=== PATIENT | female | born 1990 | race Hispanic/Latino ===

== ENCOUNTER 2018-04-01 10:41 | Emergency (ER) | payer SELFPAY ==
[2018-04-01 11:01] VITALS: BP 124/59
--- NOTE | 2018-04-01 11:36 | Emergency Department Report ---
Chief Complaint: Chest Pain Stated Complaint: CHEST PAIN/RIGHT SIDE Time Seen by Provider: 04/01/18 11:30 - HPI History of Present Illness: 27-year-old female presents to the emergency department with a complaint of a one-week history of some intermittent right-sided chest pain. She also has some occasional shortness of breath. 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 She denies any fever, back pain. No recent travel, recent surgery, recent immobility or sick contacts at home. She is not a smoker and denies any illicit drug use or abuse. She has not taken anything for her symptoms prior to presentation. - ROS Review of Systems: Positive for right-sided chest pain and intermittent shortness of breath Negative for fever, nausea, vomiting, diaphoresis - Exam Vital Signs: Vital Signs 04/01/18 10:57 Temperature 98.6 F Pulse Rate 67 Respiratory 18 Rate Blood Pressure 124/59 O2 Sat by Pulse 98 Oximetry Physical Exam: Heart sounds are normal to auscultation. Right-sided lung sounds appear normal auscultation. She does not appear in any respiratory or acute distress. [facility] [place] screening note: Focused history and physical exam performed. Due to findings the following was ordered: She will have a CBC, BMP, troponin and d-dimer. We will order a 2 view chest x- ray. EKG has already been done and does not show any signs of ST elevation [place], ischemia or dysrhythmia. ED Disposition for [facility] Condition: Stable
[2018-04-01 12:17] LABS: Basophils % (Auto) 0.5 % (0.0-1.8); Eosinophils # (Auto) 0.1 K/mm3 (0.0-0.4); Eosinophils % (Auto) 1.3 % (0.0-4.3); Hematocrit 38.8 % (30.3-42.9); Lymphocytes # (Auto) 1.3 K/mm3 (1.2-5.4); Lymphocytes % (Auto) 31.9 % (13.4-35.0); Mean Corpuscular HGB Conc 34 % (30-34); Mean Corpuscular Hemoglobin 32 pg (28-32); Mean Corpuscular Volume 96 fl (79-97); Monocytes # (Auto) 0.3 K/mm3 (0.0-0.8); Monocytes % (Auto) 6.5 % (0.0-7.3); Platelet Count 208 K/mm3 (140-440); Red Blood Count 4.06 M/mm3 (3.65-5.03); Red Cell Distribution Width 12.5 % (13.2-15.2)
[2018-04-01 12:53] LABS: BUN/Creatinine Ratio 17; Blood Urea Nitrogen 10 mg/dL (7-17); Calcium 9.1 mg/dL (8.4-10.2); Hemolysis Index 8
--- NOTE | 2018-04-01 14:23 | Emergency Department Report ---
ED Chest Pain HPI - General Chief Complaint: Chest Pain Stated Complaint: CHEST PAIN/RIGHT SIDE Time Seen by Provider: 04/01/18 11:30 Source: patient Mode of arrival: Ambulatory Limitations: No Limitations - History of Present Illness Initial Comments: 27-year-old female presents to the emergency department with a complaint of a one-week history of some intermittent right-sided chest pain. She also has some occasional shortness of breath. 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 She denies any fever, back pain. No recent travel, recent surgery, recent immobility or sick contacts at home. She is not a smoker and denies any illicit drug use or abuse. She has not taken anything for her symptoms prior to presentation. The chest pain is not reproducible to palpation but it does feel better when she is holding pressure against the chest wall. She does not currently have a primary care physician but that she should be getting insurance by the end of the year and will get a primary care physician at that time. - Related Data Allergies Allergy/AdvReac Type Severity Reaction Status Date / Time No Known Allergies Allergy Unverified 03/09/15 12:16 Heart Score - HEART Score History: Slightly suspicious EKG: Normal Age: < 45 Risk factors: No known risk factors Troponin: < normal limit HEART Score: 0 - Critical Actions Critical Actions: 0-3 pts:0.9-1.7%risk of adverse cardiac event.Candidate for discharge ED Review of Systems ROS: Stated complaint: CHEST PAIN/RIGHT SIDE Other details as noted in HPI Comment: All other systems reviewed and negative Constitutional: denies: chills, fever Eyes: denies: eye pain, eye discharge, vision change ENT: denies: ear pain, throat pain Respiratory: shortness of breath (intermittent). denies: cough Cardiovascular: chest pain. denies: palpitations Gastrointestinal: denies: abdominal pain, nausea, diarrhea Genitourinary: denies: urgency, dysuria, discharge Musculoskeletal: denies: back pain, joint swelling, arthralgia Skin: denies: rash, lesions ED Past Medical Hx - Past Medical History Previous Medical History?: Yes Additional medical history: left lung, Legionella and pneumonia - Surgical History Past Surgical History?: Yes Additional Surgical History: Left lung removed - Social History Smoking Status: Never Smoker Substance Use Type: Prescribed ED Physical Exam - General Limitations: No Limitations - Other Other exam information: GENERAL: The patient is well-developed well-nourished. HENT: Normocephalic. Atraumatic. Patient has moist mucous membranes. EYES: Extraocular motions are intact. Pupils equal reactive to light bilaterally. NECK: Supple. Trachea is midline. CHEST/LUNGS: Clear to auscultation to the right side. There are no breath sounds heard on the left side consistent with her previous pneumonectomy. There is no respiratory distress noted. HEART/CARDIOVASCULAR: Regular. There is no tachycardia. There is no murmur. ABDOMEN: Abdomen is soft, nontender. Patient has normal bowel sounds. There is no abdominal distention. SKIN: Skin is warm and dry. NEURO: The patient is awake, alert, and oriented. The patient is cooperative. The patient has no focal neurologic deficits. The patient has normal speech. MUSCULOSKELETAL: There is no tenderness or deformity. There is no limitation range of motion. There is no evidence of acute injury. ED Course Vital Signs 04/01/18 10:57 Temperature 98.6 F Pulse Rate 67 Respiratory 18 Rate Blood Pressure 124/59 O2 Sat by Pulse 98 Oximetry SONIA score - Sonia Score Age > 65: (0) No Aspirin use within the Past 7 Days: (0) No 3 or more CAD Risk Factors: (0) No 2 or more Angina events in past 24 hrs: (0) No Known CAD with more than 50% Stenosis: (0) No Elevated Cardiac Markers: (0) No ST Deviation Greater than 0.5mm: (0) No SONIA Score: 0 ED Medical Decision Making - Lab Data Result diagrams: 04/01/18 11:50 04/01/18 11:50 - EKG Data -: EKG Interpreted by Me EKG shows normal: sinus rhythm, axis (right axis deviation), intervals, QRS complexes, ST-T waves Rate: normal - EKG Data When compared to previous EKG there are: previous EKG unavailable Interpretation: normal EKG - Radiology Data Radiology results: image reviewed interpreted by me: X-ray shows a complete white out on the left side of the thorax with patient has a previous pneumonectomy. The right lung appears inflated without any obvious signs of pneumonia or pleural effusions. - Medical Decision Making Patient presents with a one-week history of some right-sided chest pain. She does not have any shortness of breath at this time but says that it happens intermittently. She also came in to get checked out as she has a previous history of a left pneumonectomy from 9 years ago. EKG does not show any signs of ST elevation [place], ischemia or dysrhythmia. Her labs of an unremarkable including no leukocytosis, no electrolyte abnormalities, negative troponin and a negative d-dimer. Chest x-ray shows no acute process to the right lung field and shows her previous pneumonectomy on the left. Her vital signs were stable throughout ED course including being afebrile and no hypoxia. For all these reasons, the patient appears safe for discharge home at this time. She is low on the Ching score criteria and low on the SONIA score. She was given referrals for primary care and cardiology and encouraged to return to the emergency Department with any worsening of her symptoms or any acute distress. - Differential Diagnosis [place], pneumonia, pneumothorax, PE, costochondritis, GERD Critical Care Time: No Critical care attestation.: If time is entered above; I have spent that time in minutes in the direct care of this critically ill patient, excluding procedure time. ED Disposition Clinical Impression: Intermittent chest pain, Right-sided chest pain Disposition: DC-01 TO HOME OR SELFCARE Is pt being admited?: No Condition: Stable Instructions: Chest Pain (ED) Additional Instructions: Please follow up with a primary care physician in the next few days if possible. I have also given you a referral for a local cold rolling coordinator, Dr. Rios, in case she wanted to follow up regarding your intermittent chest pains. Return to the emergency department immediately with any worsening of your symptoms or any acute distress. Referrals: MORENA GURROLA MD [Primary Care Provider] - 3-5 Days DARLENE RIOS MD [Staff Physician] - 3-5 Days [facility] [Outside] - 3-5 Days Forms: Work/School Release Form(ED) Time of Disposition: 14:23
--- NOTE | 2018-04-01 14:50 | XRay Report ---
ROUTINE CHEST, TWO VIEWS: HISTORY: Right sided chest pain. No recent comparison. There are large areas of atelectasis throughout the left lung with complete atelectasis of the left lower lobe. Partial atelectasis of the left upper lobe is identified. The right lung is hyperaerated. There is mediastinal shift to the left. Heart size is grossly normal. The bony structures are grossly intact. IMPRESSION: Large areas of atelectasis throughout the left lung.
== END 2018-04-01 14:30 | disposition home or self-care (01) ==
LOC: ED 10:41
DX: R07.89 Other chest pain (principal)
CPT/HCPCS: 36415; 71046; 80048; 84484; 84703; 85025; 85379; 93005; 93010; 99284